=== PATIENT | male | born 1945 | race Caucasian/White ===

== ENCOUNTER 2019-10-08 14:01 | Observation (INO) | payer MEDICARE, SELFPAY ==
[2019-10-08] VITALS (10 sets, daily range): BP systolic 144–208; BP diastolic 58–95; PULSE 50–59; RESP 16–18; TEMP 36.4–36.7; O2SAT 96–100
--- NOTE | ~2019-10-08 | XR_ITS ---
EXAMINATION: XR chest 2V 10/08/2019 15:18 INDICATION: Dyspnea. Transient alteration of awareness. PROCEDURE: 2 view chest COMPARISON: 12/13/2011 FINDINGS: The lungs are clear. The cardiomediastinal silhouette is enlarged. There are no pleural ef fusions. There is no pneumothorax suspected. IMPRESSION: 1: NO ACUTE CARDIOPULMONARY DISEASE. Reviewed, dictated and finalized at location A. CTOR OF DISTANCE LEARNING
--- NOTE | ~2019-10-08 | CT_ITS ---
EXAMINATION: CT brain wo con DATE: 10/08/2019 15:07 INDICATION: Confusion TECHNIQUE: Computed tomography (CT) of the head was performed without intravenous contrast. Sagittal and coronal reconstructions were performed. The mA was adjusted according to patient size. Iterative reconstruction technique was employed. The dose-length product was 529.67 mGy-cm. COMPARISON: head CT dated 07/16/2019 FINDINGS: No acute intracranial hemorrhage, acute infarction or abnormal extra axial fluid collection. Again se en is extensive scattered white matter hypoattenuation consistent with chronic small vessel ischemic disease. Symmetric prominence of the sulci consistent with mild age-appropriate diffuse cerebral volu me loss. Ventricles are normal and symmetric. No mass/mass effect. The orbits, paranasal sinuses and mastoid air cells are normal. IMPRESSION: 1. No acute intracranial process. 2. Stable appearance of age-related changes including mild diffuse volume loss and extensive scattere d white matter hypoattenuation consistent with chronic small vessel ischemic disease. Reviewed, dictated and finalized at location A. ER CHANGER IMPRESSION: 1. No acute intracranial process. 2. Stable appearance of age-related changes including mild diffuse volume loss and extensive scattered white matter hypoattenuation consistent with chronic sm all vessel ischemic disease.
--- NOTE | 2019-10-08 14:39 | ED.GENADULT ---
HPI - General Adult General Chief complaint: Unspecified Stated complaint: CONFUSION Time Seen by Provider: 10/08/19 14:28 Source: patient and RN notes reviewed Mode of arrival: EMS Limitations: no limitations History of Present Illness HPI narrative: Pt is a 74 y/o male who presents to the ED, via EMS, with c/o AMS. The pt's family reported the pt was increasingly confused so they called EMS to have the pt be evaluated by [facility]. EMS reports the living conditions the pt is living in is not hygienic or sanitary. Pt seems to be oriented to person and place, but unable to tell what month it is. He denies any pain anywhere in his body. The pt was evaluated in June 2019 at [facility] for similar symptoms. Pt reports a PMHx of hypertension. He reports his PCP is Dr. Castillo. complaint: AMS Onset (ago): hour(s) (today) Location: head Radiation: non-radiation Pain Consistency: constant Relieving factors: none Exacerbating factors: none Associated symptoms: denies other symptoms Related Data Home Medications Medication Instructions Recorded Confirmed amlodipine 10 mg PO DAILY 10/08/19 10/08/19 carvedilol 6.25 mg PO BID 10/08/19 10/08/19 hydralazine 50 mg PO TID 10/08/19 10/08/19 levothyroxine 0.137 mcg PO DAILY 10/08/19 10/08/19 Allergies Allergy/AdvReac Type Severity Reaction Status Date / Time No Known Allergies Allergy Verified 10/08/19 14:21 Review of Systems Review of Systems: All systems reviewed & are unremarkable except as noted in HPI and below Constitutional: Constitutional: Denies other (pain anywhere else in his body) Neurologic: Reports confusion (increased) and Reports other (AMS) [facility] Past Medical History Medical History (Updated 10/08/19 @ 19:48 by Jorge Toscano MD) CAD (coronary artery disease) CHF (congestive heart failure) Hypertension Surgical History Surgical History (Updated 07/16/19 @ 18:53 by Bryon Ivey) History of appendectomy History of cholecystectomy Family History Family History (Updated 10/08/19 @ 19:01 by Lola Hood RN) Grandparent Cerebrovascular accident Other Breast cancer Social History Social History (Updated 07/16/19 @ 18:43 by Bryon Kasigluk) Smoking packs per day: 0.33 Smoking cigarettes per day: 6.6 Smoking status: Light tobacco smoker Tobacco type: cigarettes Gender identity (if verbalized by the patient): Male Exam Narrative: Exam Narrative: GENERAL: Disheveled in appearance, well-nourished, and in no acute distress. HEAD: Normocephalic, atraumatic. EYES: PERRL and EOMI. ENT: Nares clear, no rhinorrhea or epistaxis. Mucous membranes moist. NECK: Supple. CHEST: Clear to auscultation. No respiratory distress. HEART: Regular rate and rhythm. No murmur heard. Normal peripheral pulses. ABDOMEN: Soft, nontender, nondistended. EXTREMITIES: Normal range of motion. No edema. Onychomycosis of the toes bilaterally. SKIN: Warm, dry. Darkened skin plaques to majority of the body. NEURO: No focal deficits. Alert and oriented x2. Course Course Emergency Course: Patient seems acutely altered when looking back at previous notes that she was oriented x3. Patient too weak to function at home with Adult Protective Services attempting to obtain guardianship. Apparently home was in significant disarray with backed up sewer pipe sorter lines and fecal matter/urine from the dog strewn across the house. Vital Signs Vital signs: Vital Signs Temperature 97.6 F 10/08/19 14:14 Pulse Rate 59 L 10/08/19 14:14 Respiratory Rate 16 10/08/19 14:14 Blood Pressure 208/95 H 10/08/19 14:14 Pulse Oximetry 99 10/08/19 14:14 Temperature 97.7 F 10/08/19 18:28 Pulse Rate 50 L 10/08/19 18:28 Respiratory Rate 16 10/08/19 18:28 Blood Pressure 174/74 H 10/08/19 18:28 Pulse Oximetry 100 10/08/19 18:28 Medical Decision Making Vital Signs Vital Signs: Vital Signs Temperature 97.6 F 10/08/19 14:14 Pulse Rate
[2019-10-08 14:41] LABS: Glucose Point of Care 117 (65-105)
--- NOTE | 2019-10-08 14:49 | ECG_ITS ---
Measurements Intervals [place] Rate: 53 P: 80 CA: 157 QRS: -38 QRSD: 134 T: 80 QT: 468 QTc: 440 Interpretive Statements SINUS BRADYCARDIA LEFT AXIS DEVIATION INTRAVENTRICULAR CONDUCTION DELAY DELAYED PRECORDIAL R/S TRANSITION POSSIBLE LEFT VENTRICULAR HYPERTROPHY BASELINE ARTIFACT- I, II, III, AVR, AVF, V1-V2 BORDERLINE ECG Electronically Signed On 10-08-2019 21:04:54 CLINICAL INFORMATICS STRATEGIST by Fredy Hernández D.O.
--- NOTE | 2019-10-08 14:49 | PC.NURSE ---
brother milena lopez [phone] zara sister in law [phone] son radha [phone] aps servando perez [phone] ext [phone]
[2019-10-08 15:02] LABS: Basophils Percent Auto 0.9 % (0.2-1.2); Eosinophils Absolute Auto 0.1 K/mm3 (0-0.3); Eosinophils Percent Auto 2.4 % (0-4.4); Hematocrit 38.6 % (42.0-52.0); Hemoglobin 12.4 g/dL (14.0-18.0); Immature Granulocyte Absolute 0.03 K/mm3 (0.00-0.031); Immature Granulocyte Percent A 0.9 % (0-0.5); Lymphocytes Absolute Auto 0.72 K/mm3 (0.9-3.2); Lymphocytes Percent Auto 21.7 % (18.3-44.2); Mean Corpuscular HGB Conc 32.1 g/dl (32-36); Mean Corpuscular Hemoglobin 29.5 pg (26-34); Mean Corpuscular Volume 91.7 fl (80-100); Mean Platelet Volume 11.2 fl (7.4-10.4); Monocytes Absolute Auto 0.1 K/mm3 (0.1-0.6); Monocytes Percent Auto 4.2 % (2.6-8.5); Neutrophils Absolute Auto 2.3 K/mm3 (1.3-6.7); Neutrophils Percent Auto 69.9 % (45.5-73.1); Platelet Count Result 172 k/mm3 (150-375); Red Blood Count 4.21 M/mm3 (4.6-6.20); Red Cell Distribution Width 14.3 % (11.5-14.5); White Blood Count 3.3 K/mm3 (4.5-10.0)
[2019-10-08 15:12] LABS: Alanine Aminotransferase 15 U/L (4-50); Albumin Level 4.8 g/dL (3.5-5.1); Alkaline Phosphatase 83 U/L (38-126); Ammonia < 9 umol/L (9-30); Aspartate Amino Transferase 35 U/L (17-59); Bilirubin,Total 2.3 mg/dL (0.2-1.3); Blood Urea Nitrogen 25 mg/dL (9-20); Calcium 10.3 mg/dL (8.4-10.2); Carbon Dioxide 27 mmol/L (22-30); Chloride 94 mmol/L (98-107); Creatine Kinase 282 U/L (55-170); Estimated CRCL calculation 22 ml/min; Estimated Glomerular Filt Rate 28; Glucose 116 mg/dL (75-110); Lactic Acid Reflex 1.8 mmol/L (0.7-2.1); Potassium 3.9 mmol/L (3.4-5.0); Sodium 138 mmol/L (137-145)
[2019-10-08] MEDS: SODIUM CHLORIDE 0.9% IV 1,000 ML 999 ML IV CONT (16:55)
--- NOTE | 2019-10-08 19:01 | ADMGEN ---
This patient, Sky Nolan, was admitted to [facility] Room 304-01. Patient/family oriented to hospital policies and general routines including ID bracelet, bed and alarms, visiting hours, pain management, procedures, bathroom and other care routines, personal items, smoking policy, room service/diet, and visiting hours. Valuables list has been completed. Information on how to activate the Rapid Response Team has been discussed. Patient/Family are encouraged to report perceived risks to care and to ask questions if they do not understand what they are told or what they should do.
[2019-10-08] MEDS: SODIUM CHLORIDE 0.9% IV 1,000 ML 125 ML IV CONT (21:01)
[2019-10-09] MEDS: SODIUM CHLORIDE 0.9% IV 1,000 ML 125 ML IV CONT ×2 (05:10→17:26)
[2019-10-09 06:00] VITALS: BP 178/72; PULSE 45; RESP 16; TEMP 36.6; O2SAT 96
[2019-10-09 12:35] VITALS: BMI 21.3
--- NOTE | 2019-10-09 12:52 | PM.IMHP ---
H&P: HPI History of Present Illness Chief complaint: altered mental status/physical deconditioning Narrative: Date of service of history and physical: 10/09/2019 Sky Nolan is a 74 year old male with a past medical history of hypothyroidism and HTN who presented to the Emergency Department via EMS for evaluation of AMS. The patient is a poor historian and has no recollection of his medical history, stating that he takes no medications. He reports he came to the hospital because his brother in law wanted him to be seen because he was not acting like himself. I called and spoke to his brother in who is listed as his next of kin. His brother in law, Chino, came from [place] to check on him as he hadn't heard from him and was unable to contact him. Evidently, his other brother from [place] called the police to do a wellness check as no one was able to contact the patient. This prompted Chino to come to check on Mr. Nolan, where he found him to be confused and in living conditions that were unacceptable. He stated that the kitchen was in disarray and there was feces filling the toilets and the plumbing was not working. He stated that he had not been taking any of his medications. Mr. Nolan lives alone and there is a dog in the home. Chino believed he needed to be seen in the ED because he had not been taking his medications and he was confused. Mr. Nolan is oriented to person and place, but not time. He did know the year, but he stated the month was December and that it was the fall season. Upon further discussion, it seems that his mental status is at baseline. Chino states the patient does have dementia and often tries to fake it in conversations, making up details. Sometimes he will know the year and sometimes he will not. Today, Mr. Nolan reports no pain. He states he has been fatigued and feeling weak, especially noting weakness in his legs. He also reports being cold and states this is typical for him. He denies dizziness, lightheadedness, fevers, chills, or weight changes. He denies cough, chest pain, or SOB. He denies any abdominal pain. He stated his last BM was yesterday and typically goes every other day. He is urinating without difficulty. He is able to ambulate at home without assistance. His appetite has been good. He reports he is able to take care of duties in his daily life such as driving to the store, cooking and cleaning. According to his brother in law, this is not the case, and in fact, his brother has filed a case with Adult Protective Services to have him removed from his home and placed somewhere that he can be monitored. Review of Systems Review of Systems: Narrative: A 12 point review of systems was reviewed and unremarkable except as noted in HPI. Constitutional: weakness, fatigue, no fevers, no headache Eyes: no eye complaints ENT: hearing normal, no rhinorrhea, no dysphagia Cardiovascular: no chest pain, no SOB Respiratory: no cough, no congestion GI: no abdominal pain, no nausea, no vomiting, no diarrhea : no dysuria, no urgency, no frequency Skin: no rashes MSK: no body aches, no joint pain Neuro: no headaches, memory loss, confusion Psych: no anxiety, no depression Hematologic: no bleeding, no bruising Endocrine: no weight loss, no weight gain [facility] Past Medical History Medical History (Updated 10/09/19 @ 18:45 by Kandice Cardoso PA-C) CAD (coronary artery disease) CHF (congestive heart failure) Chronic kidney disease Hypercalcemia Hypertension Hypothyroidism Surgical History Surgical History History of appendectomy History of cholecystectomy Family History Family History (Updated 10/09/19 @ 13:44 by Kandice Cardoso PA-C) Grandparent Cerebrovascular accident Father , 90 Cerebrovascular accident Sibling , 63 Lung cancer Other Breast cancer Social History Social History (Updated 10/09/19 @ 13:4
[2019-10-09 13:06] LABS: Folic Acid 5.7 ng/mL (2.76->20)
[2019-10-09] MEDS: hydrALAZINE HCL 50 MG TABLET PO ×2 (13:14→17:24)
[2019-10-09 13:43] LABS: Thyroid Stimulating Hormone Reflex > 100.000 uIU/mL (0.465-4.68)
[2019-10-09 14:00] VITALS: BP 167/70; PULSE 53; RESP 16; TEMP 37.1; O2SAT 98
--- NOTE | 2019-10-09 14:22 | PCNSR ---
On 10/09/19, the student, [Carolyn Hernandez ], provided care and completed [facility] documentation on this patient. I have reviewed the student's documentation and agree with the findings.
[2019-10-09 14:54] LABS: Free T4 Free Thyroxine Reflex < 0.07 ng/dL (0.78-2.19)
[2019-10-09 17:25] VITALS: PULSE 52
[2019-10-09] MEDS: carvediloL 6.25 MG TABLET PO (17:25)
[2019-10-09 19:33] LABS: Bilirubin Indirect 0.8 mg/dL (0-1.1)
[2019-10-09 19:47] LABS: Parathyroid Intact 107.8 pg/mL (7.5-53.5)
[2019-10-09 19:49] LABS: Iron 56 ug/dL (49-181)
[2019-10-09 19:59] LABS: Percent Iron Saturation 23 % (20-50)
[2019-10-09 20:05] LABS: Cortisol Baseline 7.58 ug/dL
[2019-10-09] MEDS: PRAVASTATIN SODIUM 20 MG TABLET 40 MG PO (20:50)
[2019-10-09 22:00] VITALS: BP 142/75; PULSE 92; RESP 18; TEMP 36.4; O2SAT 96
[2019-10-09] MEDS: LEVOTHYROXINE SODIUM INJ 100 MCG/5 ML VIAL 12.5 MCG IV PUSH (23:03)
[2019-10-10 02:48] LABS: Add Urine Microscopic? YES; Appearance Urine Clear (Clear); Bilirubin Urine Negative (Negative); Blood Urine Negative (Negative); Color Urine Yellow (Yellow); Glucose Urine UA Negative (Negative); Ketones Urine Negative (Negative); Leukocyte Esterase Ur Negative LEU/UL (NEGATIVE); Mucus Urine Rare /lpf; Nitrate Urine Negative (Negative); Protein Urine 2+ mg/dL (Negative); RBC Urine 0-2 /hpf (0-2); Specific Grav Ur 1.019 (1.001-1.035); Squamous Epithelial Cell Urine Rare /hpf (Few); WBC Urine 0-3 /hpf (0-3)
[2019-10-10] MEDS: LEVOTHYROXINE SODIUM 25 MCG TABLET PO (05:53)
[2019-10-10 06:00] VITALS: BP 169/77; PULSE 45; RESP 18; TEMP 36.4; O2SAT 99
[2019-10-10 06:22] LABS: Basophils Percent Auto 0.7 % (0.2-1.2); Eosinophils Absolute Auto 0.1 K/mm3 (0-0.3); Eosinophils Percent Auto 3.1 % (0-4.4); Hematocrit 30.2 % (42.0-52.0); Hemoglobin 9.6 g/dL (14.0-18.0); Immature Granulocyte Absolute 0.02 K/mm3 (0.00-0.031); Immature Granulocyte Percent A 0.5 % (0-0.5); Lymphocytes Absolute Auto 1.18 K/mm3 (0.9-3.2); Lymphocytes Percent Auto 27.9 % (18.3-44.2); Mean Corpuscular HGB Conc 31.8 g/dl (32-36); Mean Corpuscular Hemoglobin 29.6 pg (26-34); Mean Corpuscular Volume 93.2 fl (80-100); Mean Platelet Volume 11.4 fl (7.4-10.4); Monocytes Absolute Auto 0.3 K/mm3 (0.1-0.6); Monocytes Percent Auto 6.1 % (2.6-8.5); Neutrophils Absolute Auto 2.6 K/mm3 (1.3-6.7); Neutrophils Percent Auto 61.7 % (45.5-73.1); Platelet Count Result 147 k/mm3 (150-375); Red Blood Count 3.24 M/mm3 (4.6-6.20); Red Cell Distribution Width 14.3 % (11.5-14.5); White Blood Count 4.2 K/mm3 (4.5-10.0)
[2019-10-10 06:33] LABS: Alanine Aminotransferase 12 U/L (4-50); Albumin Level 3.5 g/dL (3.5-5.1); Alkaline Phosphatase 48 U/L (38-126); Aspartate Amino Transferase 27 U/L (17-59); Bilirubin,Total 0.7 mg/dL (0.2-1.3); Blood Urea Nitrogen 23 mg/dL (9-20); Calcium 8.7 mg/dL (8.4-10.2); Carbon Dioxide 27 mmol/L (22-30); Chloride 102 mmol/L (98-107); Estimated CRCL calculation 25 ml/min; Estimated Glomerular Filt Rate 33; Glucose 81 mg/dL (75-110); Phosphorus 2.6 mg/dL (2.5-4.5); Potassium 3.7 mmol/L (3.4-5.0); Sodium 137 mmol/L (137-145)
[2019-10-10 08:00] VITALS: PULSE 45; RESP 18; O2SAT 99
[2019-10-10] MEDS: SODIUM CHLORIDE 0.9% IV 1,000 ML 75 ML IV CONT ×2 (10:17→23:53)
[2019-10-10] MEDS: hydrALAZINE HCL 50 MG TABLET PO ×3 (10:18→18:42)
[2019-10-10] MEDS: ASPIRIN 325 MG TABLET PO (10:19)
[2019-10-10] MEDS: AMLODIPINE BESYLATE 5 MG TABLET 10 MG PO (10:19)
--- NOTE | 2019-10-10 12:30 | PC.NURSE ---
CALLED DICK AT 0900 AND REMINDED HER ABOUT THE STITCHES IN THE RT LATERAL HAND. NO ORDERS RECEVIED
[2019-10-10 14:00] VITALS: BP 151/65; PULSE 50; RESP 16; TEMP 36.5; O2SAT 96
--- NOTE | 2019-10-10 14:54 | PM.IMPN ---
Progress Note: A&P Assessment and Plan (1) Altered mental status: Qualifiers: Altered mental status type: disorientation Qualified Code(s): R41.0 - Disorientation, unspecified Code(s): R41.82 - Altered mental status, unspecified Status: Acute Assessment and Plan: Patient is alert and oriented to person and place. He knew the year but not the month or season. Etiology is unclear, but per conversation with family, this seems to be baseline for the patient. Workup including B12, folate, and magnesium levels are WNL. Thiamine pending. - Continue to monitor mental status (2) Hypothyroidism: Qualifiers: Hypothyroidism type: unspecified Qualified Code(s): E03.9 - Hypothyroidism, unspecified Code(s): E03.9 - Hypothyroidism, unspecified Status: Acute Assessment and Plan: Patient has not taken thyroid medication in unknown amount of time. IV Levothyroxine given x1 dose on 10/09. TSH >100, T4 < 0.07 There is not currently evidence of myxedema coma. Patient is bradycardic, but vitals are stable and no hypothermia. Patient is not edematous. Sodium, glucose, and respiratory rate stable. Baseline cortisol is WNL. - Continue 25 mcg PO Levothyroxine - Recheck free T4 level in 4 days - Order morning cortisol level (3) Normocytic anemia: Code(s): D64.9 - Anemia, unspecified Status: Chronic Assessment and Plan: H & H evaluated today and low with Hgb 9.6 and Hct 30.2. From prior visits, this appears to be chronic, likely due to advanced kidney disease. Patient denies any active bleeding. He is not dizzy or lightheaded. He denies hematuria, melena, or hematochezia. Vitals are stable. Iron panel reveals Iron 56, TIBC low at 242, and % saturation 23. - Continue to monitor H&H and transfuse prn. (4) Chronic kidney disease: Code(s): N18.9 - Chronic kidney disease, unspecified Status: Chronic Assessment and Plan: Creatinine has decreased from 2.3 to 2.0. BUN elevated at 23. Per last hospitalization in June, this is at baseline. His GFR is at 33. His kidney disease could explain his elevated calcium and PTH level. . - Continue IV Fluids at 75 ml/hr - Continue to monitor kidney function (5) Hypertension: Qualifiers: Hypertension type: essential hypertension Qualified Code(s): I10 - Essential (primary) hypertension Code(s): I10 - Essential (primary) hypertension Status: Chronic Assessment and Plan: Patient has not taken antihypertensive medications in unknown amount of time. BP evaluated today and elevated but reasonable at 151/65. - Continue home dose of amlodipine and hydralazine. - Hold carvedilol due to bradycardia. - Consider IV hydralazine if BP remains uncontrolled on home medications. (6) Hypercalcemia: Code(s): E83.52 - Hypercalcemia Status: Acute Assessment and Plan: Calcium has trended down from 10.3 to 8.7 today. PTH level is elevated 107.8. Phosphorus WNL at 2.6. - Vitamin D levels pending. (7) Hyperbilirubinemia: Code(s): E80.6 - Other disorders of bilirubin metabolism Status: Resolved Assessment and Plan: Total bili decreased from 2.3 to 0.7. Last visit in June was 0.9. LFTs are WNL. Direct and indirect bili are both WNL. Subjective Date/time seen: 10/10/19 14:54 Interval history: Date of service: 10/10/2019 Mr. Nolan, a 74 year old male with history of hypothyroidism, hypertension, CAD and CHF who is admitted for AMS is seen alone today. He reports he is doing well. He is oriented to person and place. He said the year was 2019 but believes it is December. He denies pain. He reports he is sleeping and eating well. He continues to endorse feeling cold. He denies chest pain, SOB, abdominal pain, headaches, dizziness, or lightheadedness. He has no complaints at time of visit. He does make me aware of a dog bite injury that he s
[2019-10-10] MEDS: PRAVASTATIN SODIUM 20 MG TABLET 40 MG PO (21:23)
[2019-10-10 22:00] VITALS: BP 151/76; PULSE 50; RESP 20; TEMP 36.8; O2SAT 95
[2019-10-11 06:00] VITALS: BP 170/79; PULSE 50; RESP 16; TEMP 36.7; O2SAT 96
[2019-10-11 06:31] LABS: Basophils Absolute Auto 0.1 K/mm3 (0.0-0.1); Eosinophils Absolute Auto 0.2 K/mm3 (0-0.3); Eosinophils Percent Auto 4.4 % (0-4.4); Hematocrit 34.3 % (42.0-52.0); Hemoglobin 11.3 g/dL (14.0-18.0); Immature Granulocyte Absolute 0.02 K/mm3 (0.00-0.031); Immature Granulocyte Percent A 0.4 % (0-0.5); Lymphocytes Absolute Auto 1.25 K/mm3 (0.9-3.2); Lymphocytes Percent Auto 25.2 % (18.3-44.2); Mean Corpuscular HGB Conc 32.9 g/dl (32-36); Mean Platelet Volume 11.1 fl (7.4-10.4); Monocytes Absolute Auto 0.3 K/mm3 (0.1-0.6); Monocytes Percent Auto 5.4 % (2.6-8.5); Neutrophils Absolute Auto 3.2 K/mm3 (1.3-6.7); Neutrophils Percent Auto 63.6 % (45.5-73.1); Platelet Count Result 169 k/mm3 (150-375); Red Blood Count 3.77 M/mm3 (4.6-6.20); Red Cell Distribution Width 14.3 % (11.5-14.5)
[2019-10-11] MEDS: LEVOTHYROXINE SODIUM 25 MCG TABLET PO (06:42)
[2019-10-11 06:48] LABS: Alanine Aminotransferase 13 U/L (4-50); Albumin Level 3.8 g/dL (3.5-5.1); Alkaline Phosphatase 56 U/L (38-126); Aspartate Amino Transferase 28 U/L (17-59); Blood Urea Nitrogen 22 mg/dL (9-20); Calcium 8.9 mg/dL (8.4-10.2); Carbon Dioxide 27 mmol/L (22-30); Chloride 97 mmol/L (98-107); Estimated CRCL calculation 30 ml/min; Estimated Glomerular Filt Rate 40; Glucose 81 mg/dL (75-110); Potassium 3.8 mmol/L (3.4-5.0); Sodium 136 mmol/L (137-145)
[2019-10-11 08:00] VITALS: PULSE 50; RESP 16; O2SAT 96
[2019-10-11] MEDS: ASPIRIN 325 MG TABLET PO (10:13)
[2019-10-11] MEDS: AMLODIPINE BESYLATE 5 MG TABLET 10 MG PO (10:13)
[2019-10-11] MEDS: hydrALAZINE HCL 50 MG TABLET PO ×3 (10:13→20:48)
[2019-10-11] MEDS: ATORVASTATIN 20 MG TABLET PO (10:14)
[2019-10-11 14:00] VITALS: BP 152/77; PULSE 71; RESP 19; TEMP 36.9; O2SAT 99
--- NOTE | 2019-10-11 14:19 | PM.IMPN ---
Progress Note: A&P Assessment and Plan (1) Altered mental status: Qualifiers: Altered mental status type: disorientation Qualified Code(s): R41.0 - Disorientation, unspecified Code(s): R41.82 - Altered mental status, unspecified Status: Acute Assessment and Plan: Patient is alert and oriented to person and place. He knew the year but not the month or season. Etiology is unclear, but per conversation with family, this seems to be baseline for the patient. Workup including B12, folate, and magnesium levels are WNL. Thiamine pending. - Continue to monitor mental status (2) Hypothyroidism: Qualifiers: Hypothyroidism type: unspecified Qualified Code(s): E03.9 - Hypothyroidism, unspecified Code(s): E03.9 - Hypothyroidism, unspecified Status: Acute Assessment and Plan: Patient has not taken thyroid medication in unknown amount of time. 12.5 mcg IV Levothyroxine given x1 dose on 10/09. TSH >100, T4 < 0.07 There is not currently evidence of myxedema coma. Patient is bradycardic, but vitals are stable and no hypothermia. Patient is not edematous. Sodium, glucose, and respiratory rate stable. Both morning and evening cortisol is WNL. - Continue 25 mcg PO Levothyroxine - Recheck free T4 level on 10/13/19 (3) Normocytic anemia: Code(s): D64.9 - Anemia, unspecified Status: Chronic Assessment and Plan: H & H evaluated today and low with Hgb 11.3 and Hct 34.3. From prior visits, this appears to be chronic, likely due to advanced kidney disease. There is no evidence of active bleeding and patient is not symptomatic. Iron panel reveals Iron 56, TIBC low at 242, and % saturation 23. - Continue to monitor H&H and transfuse prn. (4) Chronic kidney disease: Qualifiers: Chronic kidney disease stage: stage 3 (moderate) Qualified Code(s): N18.3 - Chronic kidney disease, stage 3 (moderate) Code(s): N18.9 - Chronic kidney disease, unspecified Status: Chronic Assessment and Plan: Creatinine trending down to 1.7. BUN 22. Per last hospitalization in June, this is at baseline. His GFR is at 40. His kidney disease could explain his elevated calcium and PTH level. . - Stop IV fluids due to adequate oral fluid intake and elevated BP. - Continue to monitor kidney function (5) Hypertension: Qualifiers: Hypertension type: essential hypertension Qualified Code(s): I10 - Essential (primary) hypertension Code(s): I10 - Essential (primary) hypertension Status: Chronic Assessment and Plan: Patient has not taken antihypertensive medications in unknown amount of time. BP evaluated today and elevated at 170/79. Previous pressures have been elevated but reasonable in the 150s systolic. - Increase hydralazine to 50 mg QID - Continue home dose of amlodipine - Hold carvedilol due to bradycardia. (6) Hypercalcemia: Code(s): E83.52 - Hypercalcemia Status: Acute Assessment and Plan: Calcium has trended down from 10.3 to 8.9 today. PTH level is elevated 107.8. Phosphorus WNL at 2.6. - Vitamin D levels pending. (7) Hyperbilirubinemia: Code(s): E80.6 - Other disorders of bilirubin metabolism Status: Resolved Assessment and Plan: Total bili decreased from 2.3 to 0.7. Last visit in June was 0.9. LFTs are WNL. Direct and indirect bili are both WNL. Subjective Date/time seen: 10/11/19 14:19 Interval history: Date of service: 10/11/2019 Mr. mary a man, 74-year-old male with history of hypothyroidism, hypertension, CAD and CHF who is admitted for AMS is seen alone today. He reports he is doing well. He states he is feeling stronger and is ready to go home. We discussed that, at this time, he will not be returning to his home due to the conditions of his home, which he understands. He is aware that it is recommended to be discharged to a rehab fa
--- NOTE | 2019-10-11 16:25 | PCPTNOTE ---
The patient treatment was not able to be completed on 10/11/19. Will plan to continue treatment per plan of care.
--- NOTE | 2019-10-11 16:43 | PCOTNOTE ---
The patient treatment was not able to be completed on [10/11/19] due to [short of staff]. Will plan to continue treatment per plan of care.
[2019-10-11] MEDS: PRAVASTATIN SODIUM 20 MG TABLET 40 MG PO (20:48)
[2019-10-11 21:52] VITALS: BP 143/69; PULSE 52; RESP 18; TEMP 36.5; O2SAT 98
[2019-10-12] MEDS: LEVOTHYROXINE SODIUM 25 MCG TABLET PO (05:40)
[2019-10-12 06:00] VITALS: BP 159/77; PULSE 85; RESP 16; TEMP 36.6; O2SAT 98
[2019-10-12 07:15] LABS: Alanine Aminotransferase 15 U/L (4-50); Albumin Level 4.1 g/dL (3.5-5.1); Alkaline Phosphatase 67 U/L (38-126); Aspartate Amino Transferase 29 U/L (17-59); Bilirubin,Total 1.1 mg/dL (0.2-1.3); Blood Urea Nitrogen 26 mg/dL (9-20); Calcium 9.2 mg/dL (8.4-10.2); Carbon Dioxide 23 mmol/L (22-30); Chloride 94 mmol/L (98-107); Estimated CRCL calculation 28 ml/min; Estimated Glomerular Filt Rate 37; Glucose 77 mg/dL (75-110); Potassium 4.5 mmol/L (3.4-5.0); Sodium 132 mmol/L (137-145)
[2019-10-12] MEDS: hydrALAZINE HCL 50 MG TABLET PO ×4 (08:12→21:25)
[2019-10-12] MEDS: ASPIRIN 325 MG TABLET PO (08:12)
[2019-10-12] MEDS: ATORVASTATIN 20 MG TABLET PO (08:12)
[2019-10-12] MEDS: AMLODIPINE BESYLATE 5 MG TABLET 10 MG PO (08:12)
[2019-10-12] MEDS: EUCERIN CREAM 120 GM JAR 1 APPLIC TOPICAL (08:15)
[2019-10-12 10:28] LABS: Basophils Absolute Auto 0.1 K/mm3 (0.0-0.1); Basophils Percent Auto 0.9 % (0.2-1.2); Eosinophils Absolute Auto 0.3 K/mm3 (0-0.3); Eosinophils Percent Auto 3.5 % (0-4.4); Hematocrit 32.9 % (42.0-52.0); Hemoglobin 11.2 g/dL (14.0-18.0); Immature Granulocyte Absolute 0.12 K/mm3 (0.00-0.031); Immature Granulocyte Percent A 1.5 % (0-0.5); Lymphocytes Percent Auto 20.1 % (18.3-44.2); Mean Corpuscular Hemoglobin 29.9 pg (26-34); Mean Platelet Volume 11.5 fl (7.4-10.4); Monocytes Absolute Auto 0.5 K/mm3 (0.1-0.6); Monocytes Percent Auto 5.8 % (2.6-8.5); Neutrophils Absolute Auto 5.5 K/mm3 (1.3-6.7); Neutrophils Percent Auto 68.2 % (45.5-73.1); Nucleated Red Blood Cells Absolute Auto 0.1 K/mm3 (0.0-0.012); Platelet Count Result 176 k/mm3 (150-375); Red Blood Count 3.74 M/mm3 (4.6-6.20); Red Cell Distribution Width 14.2 % (11.5-14.5)
[2019-10-12 10:40] LABS: Vitamin B1 <6 nmol/L (8-30)
[2019-10-12 11:49] LABS: Creatinine Urine 76.5 mg/dL
[2019-10-12 11:50] LABS: Sodium Urine Random 40 meq/L
--- NOTE | 2019-10-12 12:55 | PM.IMPN ---
Progress Note: A&P Assessment and Plan (1) Altered mental status: Qualifiers: Altered mental status type: disorientation Qualified Code(s): R41.0 - Disorientation, unspecified Code(s): R41.82 - Altered mental status, unspecified Status: Acute Assessment and Plan: Patient is alert and oriented to person and place. He knows the year but not the month or season. Etiology is unclear, but per conversation with family, this seems to be baseline for the patient. Workup including B12, folate, and magnesium levels are WNL. Thiamine pending. - Continue to monitor mental status (2) Hypothyroidism: Qualifiers: Hypothyroidism type: unspecified Qualified Code(s): E03.9 - Hypothyroidism, unspecified Code(s): E03.9 - Hypothyroidism, unspecified Status: Acute Assessment and Plan: Patient has not taken thyroid medication in unknown amount of time. 12.5 mcg IV Levothyroxine given x1 dose on 10/09. TSH >100, T4 < 0.07 There is not currently evidence of myxedema coma. Patient is bradycardic, but vitals are stable and no hypothermia. Patient is not edematous. Sodium, glucose, and respiratory rate stable. Both morning and evening cortisol is WNL. - Continue 25 mcg PO Levothyroxine - Recheck free T4 level on 10/13/19 (3) Normocytic anemia: Code(s): D64.9 - Anemia, unspecified Status: Chronic Assessment and Plan: H & H evaluated today and low but remaining stable with Hgb 11.2 and Hct 32.9. From prior visits, this appears to be chronic, likely due to advanced kidney disease. There is no evidence of active bleeding and patient is not symptomatic. Iron panel reveals Iron 56, TIBC low at 242, and % saturation 23. - Continue to monitor H&H and transfuse prn. (4) Chronic kidney disease: Qualifiers: Chronic kidney disease stage: stage 3 (moderate) Qualified Code(s): N18.3 - Chronic kidney disease, stage 3 (moderate) Code(s): N18.9 - Chronic kidney disease, unspecified Status: Chronic Assessment and Plan: Kidney function remaining stable with creatinine at 1.8 and BUN 26. Per last hospitalization in June, this is at baseline. His GFR is at 37. His kidney disease could explain his elevated calcium and PTH level. . IV fluids discontinued on 10/11 due to adequate oral fluid intake and elevated BP. - Encourage oral fluid intake - Order urine sodium and urine creatinine - Continue to monitor kidney function (5) Hypertension: Qualifiers: Hypertension type: essential hypertension Qualified Code(s): I10 - Essential (primary) hypertension Code(s): I10 - Essential (primary) hypertension Status: Chronic Assessment and Plan: Patient has not taken antihypertensive medications in unknown amount of time. BP evaluated today and elevated but reasonable at 159/77. - Continue hydralazine 50 mg QID - Continue home dose of amlodipine - Hold carvedilol due to bradycardia. (6) Hypercalcemia: Code(s): E83.52 - Hypercalcemia Status: Resolved Assessment and Plan: Calcium trended down from 10.3 to normal range and now stable at 9.2. PTH level is elevated at 107.8. Phosphorus WNL at 2.6. These findings are likely explained by chronic kidney disease. - Vitamin D levels pending. (7) Hyperbilirubinemia: Code(s): E80.6 - Other disorders of bilirubin metabolism Status: Resolved Assessment and Plan: Total bili decreased from 2.3 to 0.7. Last visit in June was 0.9. LFTs are WNL. Direct and indirect bili are both WNL. Subjective Date/time seen: 10/12/19 12:55 Interval history: Date of service: 10/11/2019 Mr. Nolan is a pleasant 74-year-old male with history of hypothyroidism, hypertension, CAD and CHF who is admitted for AMS. He is seen alone today and reports he is doing well. He has no acute pain today. He has no complaints. He feels that he is get
[2019-10-12 14:00] VITALS: BP 140/70; PULSE 52; RESP 18; TEMP 36.6; O2SAT 97
--- NOTE | 2019-10-12 15:27 | PCOTNOTE ---
Patient refused treatment this session due to fatigue. Nursing and pt report that pt did not get much rest during the night.
--- NOTE | 2019-10-12 16:34 | PCPTNOTE ---
Patient refused treatment this session due to increase fatigue, spoke with nursing manager reported patient had difficulty with sleeping last night due to roommate. Will continue plan of care.
[2019-10-12 20:00] VITALS: PULSE 60; RESP 18; O2SAT 94
[2019-10-12 22:05] VITALS: BP 132/64; PULSE 58; RESP 18; TEMP 36.6; O2SAT 94
[2019-10-13 06:00] VITALS: BP 146/65; PULSE 54; RESP 20; TEMP 36.6; O2SAT 96
[2019-10-13 06:27] LABS: Hematocrit 30.9 % (42.0-52.0); Hemoglobin 10.2 g/dL (14.0-18.0); Mean Corpuscular Hemoglobin 30.4 pg (26-34); Mean Platelet Volume 10.9 fl (7.4-10.4); Platelet Count Result 157 k/mm3 (150-375); Red Blood Count 3.36 M/mm3 (4.6-6.20); Red Cell Distribution Width 14.4 % (11.5-14.5); White Blood Count 5.5 K/mm3 (4.5-10.0)
[2019-10-13 06:40] LABS: Alanine Aminotransferase 14 U/L (4-50); Albumin Level 3.6 g/dL (3.5-5.1); Alkaline Phosphatase 48 U/L (38-126); Aspartate Amino Transferase 24 U/L (17-59); Bilirubin,Total 0.6 mg/dL (0.2-1.3); Blood Urea Nitrogen 31 mg/dL (9-20); Calcium 9.3 mg/dL (8.4-10.2); Carbon Dioxide 26 mmol/L (22-30); Chloride 97 mmol/L (98-107); Estimated CRCL calculation 23 ml/min; Estimated Glomerular Filt Rate 29; Glucose 75 mg/dL (75-110); Sodium 132 mmol/L (137-145)
[2019-10-13] MEDS: LEVOTHYROXINE SODIUM 25 MCG TABLET PO (06:44)
[2019-10-13 07:30] LABS: Free T4 Free Thyroxine < 0.07 ng/mL (0.78-2.19)
[2019-10-13] MEDS: AMLODIPINE BESYLATE 5 MG TABLET 10 MG PO (08:32)
[2019-10-13] MEDS: hydrALAZINE HCL 50 MG TABLET PO ×3 (08:32→17:32)
[2019-10-13] MEDS: ASPIRIN 325 MG TABLET PO (08:32)
[2019-10-13] MEDS: ATORVASTATIN 20 MG TABLET PO (08:33)
[2019-10-13] MEDS: EUCERIN CREAM 120 GM JAR 1 APPLIC TOPICAL (09:50)
[2019-10-13 14:34] VITALS: BP 113/81; PULSE 59; RESP 16; TEMP 36.3; O2SAT 93
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
[2019-10-13] MEDS: LEVOTHYROXINE SODIUM INJ 100 MCG/5 ML VIAL 12.5 MCG IV PUSH (15:54)
--- NOTE | 2019-10-13 19:03 | PC.NURSE ---
Gave report to Diandra at [facility]
[2019-10-13 21:47] LABS: Albumin 3.7 g/dL (3.8-4.8); Alpha 1 Globulin 0.2 g/dL (0.2-0.3); Alpha 2 Globulin 0.5 g/dL (0.5-0.9); Beta 1 Globulin 0.3 g/dL (0.4-0.6); Gamma Globulin 0.8 g/dL (0.8-1.7); Protein, Total 5.7 g/dL (6.1-8.1)
[2019-10-13 22:00] VITALS: BP 140/71; PULSE 54; RESP 16; TEMP 36.4; O2SAT 95
[2019-10-15 23:19] LABS: Lambda Light Chain 29.8 mg/L (5.7-26.3)
[2019-10-17 22:47] LABS: Vitamin D 1,25 (OH)2 Total 29 pg/mL (18-72); Vitamin D2 1,25 (OH)2 15 pg/mL; Vitamin D3 1,25 (OH)2 14 pg/mL
== END 2019-10-13 22:20 ==
LOC: ANHED 14:51 → ANH3MEDSUR 16:46
PROVIDERS: Physician Assistant; Admitting Provider Internal Medicine; Emergency Provider Emergency Medicine; PCP Internal Medicine; Visit Provider Internal Medicine
DX: E03.9 Hypothyroidism, unspecified (principal); R41.82 Altered mental status, unspecified; D64.9 Anemia, unspecified; I13.0 Hypertensive heart and chronic kidney disease with heart failure and stage 1 through stage 4 chronic kidney disease, or unspecified chronic kidney disease; I50.9 Heart failure, unspecified; N18.3 Chronic kidney disease, stage 3 (moderate); E83.52 Hypercalcemia; E80.6 Other disorders of bilirubin metabolism; T81.89XA Other complications of procedures, not elsewhere classified, initial encounter; Z18.89 Other specified retained foreign body fragments; I25.10 Atherosclerotic heart disease of native coronary artery without angina pectoris; F17.210 Nicotine dependence, cigarettes, uncomplicated; E51.9 Thiamine deficiency, unspecified
CPT/HCPCS: 36415; 70450; 71046; 80048; 80053; 80076; 81001; 82140; 82248; 82533; 82550; 82570; 82607; 82652; 82746; 83540; 83550; 83605; 83735; 83883; 83970; 84100; 84155; 84165; 84300; 84425; 84439; 84443; 85025; 85027; 87804; 93005; 96361; 96374; 96376; 97110; 97116; 97161; 97165; 99285; A9270; G0378; J7030

== ENCOUNTER 2025-06-23 00:33 | Emergency (ER) | payer MEDICARE, BC, SELFPAY ==
[2025-06-23] VITALS (29 sets, daily range): BP systolic 119–158; BP diastolic 39–70; PULSE 50–81; RESP 13–33; TEMP 33.9–36.2; O2SAT 91–100
--- NOTE | ~2025-06-23 | XR_ITS ---
Examination: XR chest 1V portable Clinical History: XIOMARA Comparison: 10/08/2019 Technique: Portable AP Findings: Cardiac silhouette enlarged. Bibasilar airspace disease, right lung worse. Small left pleural effusion. No acute bony abnormality. IMPRESSION: 1. Bibasilar airspace disease, with small left pleural effusion. 2. Recommend short interval follow up films. Reviewed, dictated and finalized at location R. PUMPER
--- NOTE | 2025-06-23 00:42 | ECG_ITS ---
Test Date: 2025-06-23 01:04:14 Measurements Intervals [place] Rate: 52 P: 46 IA: 165 QRS: -40 QRSD: 157 T: 96 QT: 524 QTc: 491 Interpretive Statements SINUS BRADYCARDIA LEFT AXIS DEVIATION [QRS AXIS < -30] LEFT BUNDLE BRANCH BLOCK [120+ ms QRS DURATION, 80+ ms Q/S IN V1/V2, 85+ ms R IN I/aVL/V5/V6] Electronically Signed On 06-23-2025 06:38:33 AFTERNOON NANNY by Mic Lara M.D.
--- NOTE | 2025-06-23 00:53 | ED.SOB ---
HPI - SOB/Dyspnea General Chief Complaint: Shortness of Breath/Dyspnea Stated Complaint: low O2 sats Time Seen by Provider: 06/23/25 00:41 History of Present Illness HPI Narrative: 80-year-old male with history of chronic kidney disease stage 5, diabetes, congestive heart failure, CAD. Patient presents to the emergency department with no apparent distress or complaints but was found to be hypoxic on room air 50%. Patient's care facility at [facility] noted that patient was saturating 50% while lying down. Not normal and any oxygen. Staff applied 5 L nasal cannula and only got him to the 80% range. EMS applied CPAP with 100% FiO2 for 100% oxygenation now. Noted diffuse crackles on auscultation. Patient initially refused transfer AC states he does not have any symptoms. Patient denies any chest pain shortness a breath now. He is currently on CPAP. Denies any nausea, vomiting. States he has a history of CKD and CHF but not taking any medications. Was otherwise in his normal state of health. Remaining collateral provided by EMS and history from chart. Related Data Home Medications ?Medication ?Instructions ?Recorded ?Confirmed ?Last Taken ?Type amlodipine 10 mg tablet 10 mg PO DAILY 10/08/19 10/08/19 Unknown History aspirin 325 mg tablet 325 mg PO DAILY 10/08/19 10/08/19 Unknown History carvedilol 6.25 mg tablet 6.25 mg PO BID 10/08/19 10/08/19 Unknown History Held on 10/13/19. Instructions: Patient Condition atorvastatin 20 mg tablet (Lipitor) 20 mg PO DAILY 10/10/19 10/10/19 Unknown History cholecalciferol (vitamin D3) 50 50 mcg PO DAILY 04/08/25 04/08/25 Unknown History mcg (2,000 unit) capsule ferrous sulfate 325 mg (65 mg 325 mg PO DAILY 04/08/25 04/08/25 Unknown History iron) tablet furosemide 40 mg tablet 40 mg PO DAILY 04/08/25 04/08/25 Unknown History insulin glargine-yfgn 100 unit/mL 2 unit subcut QPM 04/08/25 04/08/25 Unknown History (3 mL) subcutaneous pen Allergies Allergy/AdvReac Type Severity Reaction Status Date / Time No Known Allergies Allergy Verified 04/08/25 07:39 Review of Systems Review of Systems: As reviewed above in HPI PMFSH Past Medical History Medical History Hypercalcemia Chronic kidney disease Hypothyroidism Hypertension CAD (coronary artery disease) CHF (congestive heart failure) Surgical History Surgical History History of cholecystectomy History of appendectomy Family History Family History Grandparent Cerebrovascular accident Father , 90 Cerebrovascular accident Sibling , 63 Lung cancer Other Breast cancer Social History Social History Social History: Mr. Nolan lives alone with a dog. He is retired. He states his brother in law, [place], is his POA. Smoking packs per day: 0.33 Smoking cigarettes per day: 6.6 Years smoked: 20 Smoking pack-years: 6.60 Smoking status: Light tobacco smoker Tobacco type: cigarettes Alcohol intake: never Substance use: never Living arrangements: alone Occupation/Education: retired Gender identity (if verbalized by the patient): Male Spiritual care concerns: No Agree to blood products: No Exam Narrative: GENERAL: Respiratory distress, tachypneic and tachycardic, HEAD: [Normocephalic, atraumatic.] EYES: [PERRLA and EOMI.] ENT: Nares clear, no rhinorrhea or epistaxis. Mucous membranes moist. NECK: Supple. CHEST: Coarse bibasilar breath sounds, respiratory distress with tachypnea. Hypoxia requiring oxygen. HEART: [Regular rate and rhythm]. No murmur heard. [Normal peripheral pulses.] ABDOMEN: [Soft, nondistended], [nontender], [No rigidity or guarding] EXTREMITIES: Normal range of motion. [No edema.] SKIN: Warm, dry, no rash. NEURO: No focal neurological deficits. Alert and oriented x1 only alert to his name PSYCH: [Normal mood and affect.] Course Vital Signs Vital signs: Vital Signs Pulse Rate 54 L 06/23/25 00:35 Respiratory Rate 25 H 06/23/25 00:35 Pulse Oximetry 100 06/23/25 00:35 Oxygen Delivery CPAP 06/23/25 00:35 Temperature 34.6 C L 06/23/25 03:50 Pulse Rate 68 06/23/25 03:25 Respiratory Rate 33 H 06/23/25 03:25 Blood Pressure 124/67 06/23/25 03:01 Pulse Oximetry 95 06/23/25 03:25 Oxygen Delivery BiPAP 06/23/25 03:25 MDM - SOB/Dyspnea MDM Narrative Medical decision making narrative: 80-year-old male with history of chronic kidney disease stage 5, diabetes, congestive heart failure, CAD. Patient presents to the emergency department with no apparent distress or complaints but was found to be hypoxic on room air 50%. Patient's care facility at [facility] noted that patient was saturating 50% while lying down. Not normal and any oxygen. Staff applied 5 L nasal cannula and only got him to the 80% range. EMS applied CPAP with 100% FiO2 for 100% oxygenation now. Noted diffuse crackles on auscultation. Patient initially refused transfer AC states he does not have any symptoms. Patient denies any chest pain shortness a breath now. He is currently on CPAP. Denies any nausea, vomiting. States he has a history of CKD and CHF but not taking any medications. Was otherwise in his normal state of health. Remaining collateral provided by EMS and history from chart. Patient is not any apparent distress currently resting comfortably on the CPAP which was transitioned to BiPAP here with our respiratory therapist. He states he feels better and has no complaints but does note that his oxygen was low at the facility. Does not wear oxygen at home. Does have coarse breath sounds in while lying down flat had the hypoxia so a suspicion for possibly aspiration versus pneumonia versus CHF for CKD with volume overload. Laboratory studies obtained as well as in blood gas. He was treated with nebulization for his coarse breath sounds. CPAP transition to BiPAP therapy and patient feels comfortable at this time. Placed on registered nurse cardiac telemetry. Went and re-evaluated the patient who was looking better on BiPAP however only alert to his name and not answering questions appropriately. Severely acidotic on ABG with uremic renal failure. Minimal urinary output. BUN of 100, acidosis of 7.0. Patient given a mg of IV Lasix and bicarbonate given. Patient has multiple indications for emergent dialysis including worsening renal failure with uremic encephalopathy and fluid overload requiring hypoxemia. We do not have emergent dialysis capabilities at this time and he has no access for dialysis at this time. Will arrange transfer to higher level of care center to get this done after discussion with the hospitalist and Nephrology over the phone. Spoke to Dr. Peterson the ICU doctor at [facility] and given patient's critical illness need for emergent dialysis and inability to access these treatment options here use accepted as a direct admit to the ICU. Bed was assigned and patient transferred via ALS ambulance. Patient remains stable and reassessed frequently. Doing much better on the BiPAP which is tolerating. Vital signs have been improving but he is getting quite cold 34.6? C so a Adi Hugger was applied. Patient left the ER in serious but stable condition. Medical Records Attestation: I reviewed the patient's medical records. Lab Data Attestation: I reviewed the patient's lab results. 06/23/25 00:51 06/23/25 00:51 Labs: Lab Results 06/23/25 Range/Units 00:51 WBC 12.2 H (4.5-10.0) K/mm3 RBC 2.60 L (4.6-6.20) M/mm3 Hgb 7.4 L (14.0-18.0) g/dL Hct 22.9 L (42.0-52.0) % MCV 88.1 (80-100) fl MCH 28.5 (26-34) pg MCHC 32.3 (32-36) g/dl RDW 15.4 H (11.5-14.5) % Plt Count 192 (150-375) k/mm3 MPV 9.8 (7.4-10.4) fl Immature Gran % (Auto) 2.0 H (0-0.5) % Neut % (Auto) 90.9 H (45.5-73.1) % Lymph % (Auto) 2.6 L (18.3-44.2) % Phelps % (Auto) 4.3 (2.6-8.5) % Eos % (Auto) 0.0 (0-4.4) % Baso % (Auto) 0.2 (0.2-1.2) % Lymph # (Auto) 0.32 L (0.9-3.2) K/mm3 Phelps # (Auto) 0.5 (0.1-0.6) K/mm3 Eos # (Auto) 0.0 (0-0.3) K/mm3 Baso # (Auto) 0.0 (0.0-0.1) K/mm3 Abs Immat Gran (auto) 0.25 H (0.00-0.031) K/mm3 Absolute Neuts (auto) 11.1 H (1.3-6.7) K/mm3 Absolute Nucleated RBC 0.000 (0.0-0.012) K/mm3 Nucleated RBC % 0.0 (0.0-0.2) % PT 14.9 H (11.1-14.7) Seconds INR 1.2 APTT 39.0 H (22.3-36.8) Seconds Expiratory Pressure 6 CMH2O Inspiratory Pressure 14 CMH2O Sodium 128 L (137-145) mmol/L Potassium 5.2 H (3.4-5.0) mmol/L Chloride 95 L (98-107) mmol/L Carbon Dioxide 14 L (22-30) mmol/L Anion Gap 19 H (4-12) mmol/L BUN 100 H D (9-20) mg/dL Creatinine 6.82 H (0.7-1.3) mg/dL Estim Creat Clear Calc 8 ml/min Estimated GFR 8 L (59 - ) Glucose 150 H (65-110) mg/dL Lactic Acid 0.9 (0.7-2.0) mmol/L Calcium 8.2 L (8.4-10.2) mg/dL Magnesium 2.2 (1.6-2.3) mg/dL Total Bilirubin 0.8 (0.2-1.3) mg/dL AST 34 (17-59) U/L ALT 21 (6-50) U/L Alkaline Phosphatase 69 (38-126) U/L Troponin I 0.065 H* (0.000-0.034) ng/mL NT-Pro-B Natriuret Pep 67804 H (19.9-100) pg/mL Total Protein 7.6 (6.3-8.2) g/dL Albumin 4.2 (3.5-5.1) g/dL ABG Data ABG results: 06/23/25 00:51 Puncture Site Right brachial ABG pH 7.173 L* ABG pCO2 38.4 ABG pO2 91.8 ABG PO2/FiO2 Ratio 1.84 ABG HCO3 13.8 L ABG O2 Saturation 95.0 ABG O2 Content 10.5 L ABG Base Excess -13.6 A-a Gradient 221.5 Oxyhemoglobin 93.3 Total Hemoglobin 7.9 L O2 Delivery Device Non-invasive vent O2 Liters/Min Not Reportable Vent Rate 12 FiO2 50 Attestation: I personally reviewed and interpreted this ABG as follows: Interpretation: pure metabolic acidosis Imaging Data Attestation: I personally reviewed and interpreted this imaging study as follows: My impression: Impressions Chest X-Ray 06/23/25 05:43 IMPRESSION: 1. Bibasilar airspace disease, with small left pleural effusion. 2. Recommend short interval follow up films. Critical Care Time Critical Care Time Critical Care Time: Yes Total Critical Care Time: 75 Discharge Plan Discharge Clinical Impression: Acute hypoxic respiratory failure, Fluid overload, ESRD needing dialysis, Uremic acidosis, Uremic encephalopathy Patient Disposition: Acute Care Hospital Condition: Serious Patient Language: Spanish Prescriptions: No Action furosemide 40 mg tablet 40 mg PO DAILY ferrous sulfate 325 mg (65 mg iron) tablet 325 mg PO DAILY cholecalciferol (vitamin D3) 50 mcg (2,000 unit) capsule 50 mcg PO DAILY insulin glargine-yfgn 100 unit/mL (3 mL) insulin pen 2 unit subcut QPM amlodipine 10 mg Tablet 10 mg PO DAILY carvedilol 6.25 mg Tablet 6.25 mg PO BID aspirin 325 mg Tablet 325 mg PO DAILY atorvastatin [Lipitor] 20 mg Tablet 20 mg PO DAILY thiamine HCl (vitamin B1) 100 mg tablet 100 mg PO DAILY Qty: 30 0RF Rx Instructions: Take one tablet daily levothyroxine 25 mcg Tablet 25 mcg PO DAILY@0630 Qty: 30 0RF hydralazine 50 mg Tablet 50 mg PO QID Qty: 120 0RF Follow-up/Referrals: Kwadwo,Jonathan Cuevas MD [Primary Care Provider] Time of Disposition: 06:46
[2025-06-23] MEDS: IPRATROPIUM 0.5 MG/ALBUTEROL SULFATE 2.5 MG (BASE) AMPUL.NEB 3 ML INHALATION ×2 (01:02→01:20)
[2025-06-23 01:13] LABS: Hematocrit 22.9 % (42.0-52.0); Hemoglobin 7.4 g/dL (14.0-18.0); Immature Granulocyte Percent A 2.0 % (0-0.5); Lymphocytes Absolute Auto 0.32 K/mm3 (0.9-3.2); Mean Corpuscular HGB Conc 32.3 g/dl (32-36); Mean Corpuscular Hemoglobin 28.5 pg (26-34); Mean Corpuscular Volume 88.1 fl (80-100); Nucleated Red Blood Cells Absolute Auto 0.000 K/mm3 (0.0-0.012); Nucleated Red Blood Cells Perc 0.0 % (0.0-0.2); Platelet Count Result 192 k/mm3 (150-375); Red Blood Count 2.60 M/mm3 (4.6-6.20); White Blood Count 12.2 K/mm3 (4.5-10.0)
[2025-06-23 01:14] LABS: Alanine Aminotransferase 21 U/L (6-50); Albumin Level 4.2 g/dL (3.5-5.1); Alkaline Phosphatase 69 U/L (38-126); Alveolar/Arterial O2 Gradient 221.5 mmHg; Anion Gap 19 mmol/L (4-12); Aspartate Amino Transferase 34 U/L (17-59); Bilirubin,Total 0.8 mg/dL (0.2-1.3); Blood Urea Nitrogen 100 mg/dL (9-20); Calcium 8.2 mg/dL (8.4-10.2); Carbon Dioxide 14 mmol/L (22-30); Chloride 95 mmol/L (98-107); Estimated CRCL calculation 8 ml/min; Estimated Glomerular Filt Rate 8; Fractional Inspired Oxygen 50 %; Glucose 150 mg/dL (65-110); HCO3 ABG 13.8 mEq/l (22.0-26.0); Magnesium 2.2 mg/dL (1.6-2.3); Oxygen Content ABG 10.5 %vol (16.0-22.0); Oxygen Saturation ABG 95.0 % (95.0-100.0); PCO2 ABG 38.4 mmHg (35.0-45.0); PO2 ABG 91.8 mmHg (80.0-100.0); PO2 FiO2 Ratio Arterial Blood 1.84 %; Potassium 5.2 mmol/L (3.4-5.0); Sodium 128 mmol/L (137-145); Total Protein 7.6 g/dL (6.3-8.2)
[2025-06-23 01:23] LABS: INR 1.2; Partial Thromboplastin Time 39.0 Seconds (22.3-36.8); Prothrombin Time 14.9 Seconds (11.1-14.7)
[2025-06-23 01:24] LABS: Non-Invasive Expiratory Pressure 6 CMH2O; Non-Invasive Inspiratory Pressure 14 CMH2O; Non-Invasive Vent Rate 12 /MIN; Site Drawn RIGHT BRACHIAL
[2025-06-23 01:34] LABS: NT Pro B Type Natriuretic Pept 25200 pg/mL (19.9-100); Troponin I 0.065 ng/mL (0.000-0.034)
[2025-06-23] MEDS: FUROSEMIDE INJ 100 MG/10 ML VIAL 80 MG IV PUSH (02:47)
[2025-06-23] MEDS: SODIUM BICARBONATE 8.4% 50 MEQ/50 ML SYRINGE 100 MEQ IV PUSH (03:13)
[2025-06-23] MEDS: CALCIUM GLUCONATE 1,000 MG/10 ML VIAL 1000 MG IV PUSH (03:13)
[2025-06-23] MEDS: levoFLOXacin 750 MG/D5W 150 ML 750 MG/150 ML BAG 100 MG IVPB (03:33)
--- NOTE | 2025-06-23 04:24 | PC.NURSE ---
This RN received a phone call from April from [facility] and was told pt is accepted and will be going to ICU, but does not have a bed at this time and will call back when once is available.
--- NOTE | 2025-06-23 04:29 | PC.NURSE ---
This RN called pt son Jesús per pt request and gave an update on pt. Will call back with more updated on transfer. [phone]
--- NOTE | 2025-06-23 04:47 | PC.NURSE ---
This RN received a call from April at [facility] transfer line and was told pt was accepted to bed ICU-[address] Peterson[address]Will call report to [phone]
--- NOTE | 2025-06-23 06:14 | PC.NURSE ---
This RN called Kathy from [facility] and gave update on pt.
--- NOTE | 2025-06-23 07:44 | PC.NURSE ---
Pt son Jesús called and updated on pt transfer.
== END 2025-06-23 06:40 | disposition short-term general hospital (02) ==
PROVIDERS: Emergency Provider Student in an Organized Health Care Education/Training Program; PCP Internal Medicine
DX: J96.01 Acute respiratory failure with hypoxia (principal); E87.70 Fluid overload, unspecified; E11.22 Type 2 diabetes mellitus with diabetic chronic kidney disease; I13.2 Hypertensive heart and chronic kidney disease with heart failure and with stage 5 chronic kidney disease, or end stage renal disease; N18.6 End stage renal disease; G93.41 Metabolic encephalopathy; N25.89 Other disorders resulting from impaired renal tubular function; I50.9 Heart failure, unspecified; I25.10 Atherosclerotic heart disease of native coronary artery without angina pectoris; E03.9 Hypothyroidism, unspecified; F17.210 Nicotine dependence, cigarettes, uncomplicated; Z90.49 Acquired absence of other specified parts of digestive tract; Z79.4 Long term (current) use of insulin; Z79.82 Long term (current) use of aspirin; Z79.899 Other long term (current) drug therapy; R00.1 Bradycardia, unspecified; I44.7 Left bundle-branch block, unspecified
CPT/HCPCS: 36415; 36600; 71045; 80053; 82805; 83605; 83735; 83880; 84484; 85018; 85025; 85610; 85730; 93005; 94002; 94640; 96365; 96366; 96375; 99291; J0612; J1938; J1956